=== PATIENT | female | born 1990 | race Caucasian/White ===

== ENCOUNTER 2016-04-21 09:52 | Emergency (ER) | payer OTHER ==
--- NOTE | 2016-04-29 14:33 | ER ---
ADMIT: 04/21/2016 RM/LOC: ER [facility] MR#: [id number] [address] [id number] DELMY OLMEDO [address] [place] [id number] Emergency Room Report SEX: F AGE: 25 : 1990 DATE: 04/21/2016 ADDENDUM: This patient comes to the ER because she woke up this morning with sudden severe onset of pain on her right lower abdomen. She states the pain is 10/10. She has vomited one time. She grabs at her right lower quadrant and also in her right flank area. Her CBC and BMP were normal and her urinalysis had +[address] scan was negative, they were able to see her appendix and her ultrasound was negative for torsion on the right side. I did do a bimanual, which I really could not reproduce any pain and she did not appear to have cervical motion tenderness. She was given 15 mg of morphine and 1 mg of Dilaudid, and we will never really able to get her pain under control. She was given 1 mg of Dilaudid and 15 mg of morphine. I did let her know the results of the labs. She did have stable vital signs throughout the stay. I will let her go home with [place], Zofran, and doxycycline. I did do genital cultures, and she was given Rocephin 1 g IV. She is to follow up with Dr. Land in the next couple of days if not feeling better. Return to the ER if not keeping fluids down, or any fever or worsened pain. JASPER Ocasio / Edwar Muhammad MD / paulina JOB #: [id number] CC: Edwar Muhammad MD, Attending Physician Juliet Etienne MD, Family Physician
== END 2016-04-21 15:00 | disposition home or self-care (01) ==
LOC: ER 09:52
DX: R10.31 Right lower quadrant pain (principal); E03.9 Hypothyroidism, unspecified; Z88.8 Allergy status to other drugs, medicaments and biological substances; Z79.899 Other long term (current) drug therapy